=== PATIENT | female | born 1980 | race Caucasian/White ===

== ENCOUNTER 2018-03-16 19:27 | Emergency (ER) | payer MEDICAID ==
[~2018-03-16] VITALS: Ht 180.3 cm; Wt 90.0 kg
[2018-03-16 19:50] LABS: BASOPHILS # (AUTO) 0.1 X10'3 (0-0.2); BASOPHILS % (AUTO) 0.5 % (0-1); EOSINOPHILS # (AUTO) 0.5 X10'3 (0-0.9); EOSINOPHILS % (AUTO) 4.6 % (0-6); HEMATOCRIT 46.3 % (35.0-45.0); HEMOGLOBIN 15.7 g/dl (12.0-16.0); LYMPHOCYTES # (AUTO) 4.9 X10'3 (1.1-4.8); LYMPHOCYTES % (AUTO) 42.4 % (21-51); MEAN CORPUSCULAR HEMOGLOBIN 28.1 PG (27.0-31.0); MEAN CORPUSCULAR HGB CONC 33.9 % (33.0-36.5); MEAN CORPUSCULAR VOLUME 82.9 FL (78-98); MEAN PLATELET VOLUME 9.5 FL (7.4-10.4); MONOCYTES # (AUTO) 0.9 X10'3 (0-0.9); MONOCYTES % (AUTO) 8.2 % (2-12); NEUTROPHILS # (AUTO) 5.1 X10'3 (1.8-7.7); NEUTROPHILS % (AUTO) 44.3 % (42-75); PLATELET COUNT 222 X10'3 (140-440); RED BLOOD COUNT 5.59 X10'6 (4.20-5.60); RED CELL DISTRIBUTION WIDTH 12.6 % (11.5-14.5); WHITE BLOOD COUNT 11.5 X10'3 (4.5-11.0)
[2018-03-16 19:56] LABS: CLARITY,URINE CLEAR (Clear); COLOR,URINE YELLOW (Yellow); GLUCOSE, URINE NEGATIVE (Neg); KETONES,URINE NEGATIVE (Neg); LEUKOCYTE ESTERASE ,URINE NEGATIVE (Neg); NITRITES, URINE NEGATIVE (Neg); OCCULT BLOOD,URINE TRACE-INTACT (Neg); PROTEIN,URINE NEGATIVE (Neg); UROBILINOGEN,URINE 0.2 E.U/dL (0.2-1.0)
[2018-03-16 20:01] LABS: URINE HCG NEGATIVE (NEG)
[2018-03-16 20:02] LABS: UA COLLECTION TYPE CLN CATCH MIDSTREAM
[2018-03-16 20:03] LABS: BACTERIA,URINE FEW /HPF (Neg); RBC,URINE 0-2 /HPF (0-2); SQUAMOUS EPITHELIAL CELL,UR FEW /LPF (FEW); WBC,URINE NONE SEEN /HPF (0-4)
[2018-03-16 20:07] LABS: ALANINE AMINOTRANSFERASE 46 U/L (12-78); ALBUMIN 3.2 G/DL (3.4-5.0); ALBUMIN/GLOBULIN RATIO 0.8 (1.1-1.5); ALKALINE PHOSPHATASE 107 IU/L (46-116); ANION GAP 10 (8-16); ASPARTATE AMINO TRANSFERASE 26 U/L (10-37); BILIRUBIN,TOTAL 0.3 MG/DL (0.1-1.0); BLOOD UREA NITROGEN 10 MG/DL (7-18); CALCIUM 8.8 MG/DL (8.5-10.1); CHLORIDE 106 MMOL/L (99-107); CREATININE 0.91 MG/DL (0.40-0.90); GLUCOSE 151 MG/DL (70-104); LIPASE 159 U/L (73-393); POTASSIUM 4.3 MMOL/L (3.5-5.1); SODIUM 138 MMOL/L (135-145); TOTAL CARBON DIOXIDE 21.9 MMOL/L (24-32); TOTAL PROTEIN 7.3 G/DL (6.4-8.2); eGFR 69 ML/MIN
[2018-03-16 20:08] LABS: PROTHROMBIN TIME 9.7 SECONDS (9.0-12.0)
[2018-03-16] MEDS ORDERED: ketorolac trometh inj. 60 MG/2 ML VIAL IM ONE (20:30)
[2018-03-16] MEDS ORDERED: HYDROcodone/acetaminophen 5mg/325mg tablet PO ONE (20:30)
[2018-03-16] MEDS ORDERED: CYCL-1 PO (21:19)
[2018-03-16] MEDS ORDERED: DICL50TA8 PO (21:19)
[2018-03-16 21:39] VITALS: BP 132/72
== END 2018-03-16 21:40 | disposition home or self-care (01) ==
LOC: ER 19:28
DX: R10.31 Right lower quadrant pain (principal); F41.9 Anxiety disorder, unspecified; Z87.440 Personal history of urinary (tract) infections
CPT/HCPCS: 36415; 74176; 80053; 81001; 81025; 83690; 85025; 85610; 96372; 99284; J1885

== ENCOUNTER 2019-11-15 11:37 | Emergency (ER) | payer MEDICAID ==
[~2019-11-15] VITALS: Ht 180.3 cm; Wt 110.4 kg
[~2019-11-15 11:37] MED LIST: CYCL-1 PO; DICL50TA8 PO
[2019-11-15 11:46] VITALS: BP 130/90
--- NOTE | 2019-11-15 11:53 | NUR ---
awaiting for ed .
[2019-11-15] MEDS ORDERED: LIDOcaine Viscous 15ml cup MM STA (12:16)
[2019-11-15] MEDS ORDERED: LIDO20SO16 PO (12:25)
[2019-11-15] MEDS ORDERED: AMOX500C2 PO (12:25)
== END 2019-11-15 12:36 | disposition home or self-care (01) ==
LOC: ER 11:38
DX: K08.89 Other specified disorders of teeth and supporting structures (principal); R42 Dizziness and giddiness; R11.0 Nausea; F41.9 Anxiety disorder, unspecified; Z98.890 Other specified postprocedural states; Z79.2 Long term (current) use of antibiotics; Z79.899 Other long term (current) drug therapy
CPT/HCPCS: 99283

== ENCOUNTER 2020-02-23 13:46 | Emergency (ER) | payer MEDICAID ==
[~2020-02-23] VITALS: Ht 180.3 cm; Wt 100.0 kg
[~2020-02-23 13:46] MED LIST changes: +LIDO20SO16 PO
[2020-02-23] MEDS ORDERED: ketorolac trometh inj. 60 MG/2 ML VIAL IM ONE (15:25)
[2020-02-23] MEDS ORDERED: meclizine 12.5mg tablet PO ONE ×2 (15:25→16:30)
[2020-02-23] MEDS ORDERED: acetaminophen 325mg tablet PO ONE (15:25)
[2020-02-23] MEDS ORDERED: MECL-183 PO (17:32)
[2020-02-23 17:54] VITALS: BP 136/103
== END 2020-02-23 17:55 | disposition home or self-care (01) ==
LOC: ER 13:46
DX: R42 Dizziness and giddiness (principal); R51.9 Headache, unspecified; E05.00 Thyrotoxicosis with diffuse goiter without thyrotoxic crisis or storm; E07.9 Disorder of thyroid, unspecified; F12.10 Cannabis abuse, uncomplicated; F41.9 Anxiety disorder, unspecified; Z87.448 Personal history of other diseases of urinary system; Z79.899 Other long term (current) drug therapy
CPT/HCPCS: 93005; 96372; 99284; J1885; J8597

== ENCOUNTER 2020-03-17 17:23 | Emergency (ER) | payer MEDICAID, OTHER ==
[~2020-03-17] VITALS: Ht 180.3 cm; Wt 100.0 kg
[~2020-03-17 17:23] MED LIST changes: +MECL-226 PO
[2020-03-17 17:49] VITALS: BP 153/97
[2020-03-17] MEDS ORDERED: IBUP-1984 PO (18:22)
== END 2020-03-17 18:36 | disposition home or self-care (01) ==
LOC: ER 17:23
DX: S63.591A Other specified sprain of right wrist, initial encounter (principal); F17.200 Nicotine dependence, unspecified, uncomplicated; F15.90 Other stimulant use, unspecified, uncomplicated; F17.210 Nicotine dependence, cigarettes, uncomplicated; E05.00 Thyrotoxicosis with diffuse goiter without thyrotoxic crisis or storm; Z79.899 Other long term (current) drug therapy; X50.0XXA Overexertion from strenuous movement or load, initial encounter; Y93.89 Activity, other specified; Y92.89 Other specified places as the place of occurrence of the external cause; Y99.0 Civilian activity done for income or pay
CPT/HCPCS: 29260; 73110; 99283

== ENCOUNTER 2020-05-14 23:55 | Emergency (ER) | payer MEDICAID, OTHER ==
[~2020-05-14] VITALS: Ht 180.3 cm; Wt 86.4 kg
[2020-05-15] MEDS ORDERED: proCHLORperazine 10 MG/2 ml inj IV ONE (00:40)
[2020-05-15] MEDS ORDERED: normal saline 1000ML IV soln IVB ONE (00:40)
[2020-05-15 01:29] LABS: D-DIMER 1.68 MG/L FEU (0-0.50)
[2020-05-15 01:31] LABS: ALANINE AMINOTRANSFERASE 17 U/L (12-78); ALBUMIN 3.1 G/DL (3.4-5.0); ALBUMIN/GLOBULIN RATIO 0.8 (1.1-1.5); ALKALINE PHOSPHATASE 72 IU/L (46-116); ANION GAP 10 (8-16); ASPARTATE AMINO TRANSFERASE 13 U/L (10-37); BILIRUBIN,TOTAL 0.5 MG/DL (0.1-1.0); BLOOD UREA NITROGEN 7 MG/DL (7-18); BUN/CREATININE RATIO 9.7 (6.6-38.0); CALCIUM 8.3 MG/DL (8.5-10.1); CHLORIDE 103 MMOL/L (99-107); CREATININE 0.72 MG/DL (0.40-0.90); GLUCOSE 103 MG/DL (70-104); POTASSIUM 3.6 MMOL/L (3.5-5.1); SODIUM 134 MMOL/L (135-145); TOTAL CARBON DIOXIDE 21.1 MMOL/L (24-32); eGFR 89 ML/MIN
[2020-05-15 01:47] LABS: BASOPHILS # (AUTO) 0.2 X10'3 (0-0.2); BASOPHILS % (AUTO) 1.5 % (0-1); EOSINOPHILS # (AUTO) 0.5 X10'3 (0-0.9); HEMATOCRIT 42.6 % (35.0-45.0); HEMOGLOBIN 14.6 g/dl (12.0-16.0); LYMPHOCYTES # (AUTO) 0.6 X10'3 (1.1-4.8); LYMPHOCYTES % (AUTO) 5.3 % (21-51); MEAN CORPUSCULAR HEMOGLOBIN 30.4 PG (27.0-31.0); MEAN CORPUSCULAR HGB CONC 34.3 g/dL (33.0-36.5); MEAN CORPUSCULAR VOLUME 88.7 FL (78-98); MEAN PLATELET VOLUME 8.9 FL (7.4-10.4); MONOCYTES # (AUTO) 0.6 X10'3 (0-0.9); MONOCYTES % (AUTO) 4.8 % (2-12); NEUTROPHILS % (AUTO) 84.4 % (42-75); PLATELET COUNT 272 X10'3 (140-440); RED BLOOD COUNT 4.81 X10'6 (4.20-5.60); RED CELL DISTRIBUTION WIDTH 13.3 % (11.5-14.5); WHITE BLOOD COUNT 11.9 X10'3 (4.5-11.0)
[2020-05-15] MEDS ORDERED: diphenhydrAMINE 50 mg/ml inj IV ONE (02:00)
[2020-05-15] MEDS ORDERED: metoclopramide 5 mg/ml inj IV ONE (02:00)
[2020-05-15] MEDS ORDERED: magnesium 2GM in 50ml NS 50 ML IV ONE (02:00)
[2020-05-15] MEDS ORDERED: iohexol 350MG/ML 100ml bottle IV ONE (02:00)
[2020-05-15] MEDS ORDERED: aspirin 325mg tablet PO ONE (02:00)
[2020-05-15 02:26] LABS: BETA HCG,QUANTITATIVE < 1.0 mIU/ml
[2020-05-15 02:34] VITALS: BP 114/71
--- NOTE | 2020-05-15 02:41 | NUR ---
returned from ct of chest. continues with headache. just given reglan, benedryl, mg gtt infusing and 1 liter ns bolus infused. awating ct results. remains in airborn precautions.
[2020-05-15] MEDS ORDERED: PRED20TA PO (03:03)
[2020-05-15] MEDS ORDERED: dexamethasone 4mg/ml inj IV ONE (03:05)
[2020-05-15] MEDS ORDERED: dexamethasone 4mg/ml inj IV SCH (08:00)
== END 2020-05-15 03:30 | disposition home or self-care (01) ==
LOC: ER 23:57
DX: J06.9 Acute upper respiratory infection, unspecified (principal); R05 Cough; R06.02 Shortness of breath; R50.9 Fever, unspecified; Z20.822 Contact with and (suspected) exposure to COVID-19; F41.9 Anxiety disorder, unspecified; E05.90 Thyrotoxicosis, unspecified without thyrotoxic crisis or storm; F12.90 Cannabis use, unspecified, uncomplicated; Z87.440 Personal history of urinary (tract) infections; Z98.890 Other specified postprocedural states; Z79.899 Other long term (current) drug therapy
CPT/HCPCS: 36415; 71045; 71275; 80053; 83880; 84702; 85025; 85379; 85610; 87635; 93005; 96361; 96365; 96375; 99285; J0780; J1100; J1200; J2765; J3475; J7030; Q9967

== ENCOUNTER 2024-08-25 22:49 | Emergency (ER) | payer MEDICAID ==
[~2024-08-25] VITALS: Ht 182.9 cm; Wt 120.0 kg
[2024-08-25 23:00] LABS: BASOPHILS # (AUTO) 0.2 X10'3 (0-0.2); BASOPHILS % (AUTO) 1.1 % (0-1); EOSINOPHILS # (AUTO) 0.6 X10'3 (0-0.9); EOSINOPHILS % (AUTO) 3.4 % (0-6); HEMOGLOBIN 14.7 g/dl (12.0-16.0); LYMPHOCYTES # (AUTO) 6.4 X10'3 (1.1-4.8); LYMPHOCYTES % (AUTO) 35.7 % (21-51); MEAN CORPUSCULAR HEMOGLOBIN 28.8 PG (27.0-31.0); MEAN CORPUSCULAR HGB CONC 33.4 g/dL (33.0-36.5); MEAN CORPUSCULAR VOLUME 86.1 FL (78-98); MEAN PLATELET VOLUME 8.1 FL (7.4-10.4); MONOCYTES # (AUTO) 1.1 X10'3 (0-0.9); MONOCYTES % (AUTO) 6.2 % (2-12); NEUTROPHILS # (AUTO) 9.6 X10'3 (1.8-7.7); NEUTROPHILS % (AUTO) 53.6 % (42-75); PLATELET COUNT 367 X10'3 (140-440); RED BLOOD COUNT 5.11 X10'6 (4.20-5.60); RED CELL DISTRIBUTION WIDTH 13.5 % (11.5-14.5); WHITE BLOOD COUNT 17.9 X10'3 (4.5-11.0)
[2024-08-25 23:14] LABS: ALANINE AMINOTRANSFERASE 19 U/L (12-78); ALBUMIN 3.2 G/DL (3.4-5.0); ALBUMIN/GLOBULIN RATIO 0.8 (1.1-1.5); ALKALINE PHOSPHATASE 108 IU/L (46-116); ANION GAP 6 (8-16); ASPARTATE AMINO TRANSFERASE 12 U/L (10-37); BILIRUBIN,TOTAL 0.2 MG/DL (0.1-1.0); BLOOD UREA NITROGEN 11 MG/DL (7-18); BUN/CREATININE RATIO 12.6 (10.0-20.0); CALCIUM 8.4 MG/DL (8.5-10.1); CHLORIDE 107 MMOL/L (99-107); CREATININE 0.87 MG/DL (0.40-0.90); GLUCOSE 99 MG/DL (70-104); POTASSIUM 4.2 MMOL/L (3.5-5.1); SODIUM 141 MMOL/L (135-145); TOTAL CARBON DIOXIDE 27.9 MMOL/L (24-32); TOTAL PROTEIN 7.1 G/DL (6.4-8.2); eCRCL 94 ML/MIN; eGFR 70 ML/MIN
[2024-08-25 23:21] LABS: PRO BRAIN NATRIURETIC PEPTIDE 43 PG/ML (0-125)
--- NOTE | 2024-08-26 01:09 | Physician Documentation ---
History of Present Illness ~ Chief Complaint: Chest Pain Stated Complaint: CHEST PAIN Time Seen by MD: 01:06 Primary Medical Doctor: Danie Mode of Arrival: POV HPI Patient presents to the emergency room for evaluation of chest pain. She states that symptoms began a proximally 4 hours prior to arrival while she was laying down in bed. Pain is shooting in nature exacerbated by nothing relieved by nothing. No prior instances. Denies one-sided leg pain. Patient does smoke and has a history of hyperlipidemia but denies any history of diabetes or hypertension or first-degree relative with heart disease. Medication Reconciliation Allergies: Coded Allergies: No Known Allergies (Unverified , 01/08/15) Scheduled Diclofenac Sodium (Diclofenac Sodium), 1 TABLET PO BID Lidocaine Hcl (Xylocaine Viscous), 10 ML PO Q4H Scheduled PRN Cyclobenzaprine* (Cyclobenzaprine*), 1 TABLET PO Q8H PRN for muscle spasms Meclizine HCl (Meclizine HCl), 1 TAB PO Q8H PRN for dizz Past Medical History Past Medical History: *RENAL/*, UTI, Graves' Disease, Hyperthyroidism, Anxiety Past Surgical History: other Alcohol Use: Rarely Drug Use: marijuana Lives with: Mother, S/O Lives In: Home Occupation: employed Review of Systems ROS All review of systems negative except as per HPI Physical Exam Vital Signs: Temperature: 97.8, Source: Oral, Heart Rate: 73, Respiratory Rate: 19, BP: 139/98, Pulse Oximetry: 99, Weight: 120.000 Oxygen Flow Rate: 0 Physical Exam General: Patient is awake, alert, oriented x4 in no acute distress Head: Normocephalic and atraumatic. Eyes: Conjunctival normal. EOMI. PERRL. ENT: Mucous membranes moist. Neck: Supple, trachea is midline. Chest: Clear to auscultation bilaterally without rales, rhonchi, or wheezes. There is no accessory muscle use or retractions. Cardiac: RRR without murmurs, gallops, or rubs. Extremities: Normal strength. Normal range of motion. No deformities or edema. No calf tenderness to palpation Progress Results/Orders Results/Orders Orders - OK MADRID MD Chest,Single View (08/25/24 23:05) Monitor (08/25/24 22:51) Saline Lock (08/25/24 22:51) Oxygen (5/12/25 22:51) Electrocardiogram (08/25/24 22:51) Hs Troponin I W Calculations (08/26/24 01:51) Completed Orders - OK MADRID MD Chest,Single View (08/25/24 23:05) Cbc/Diff (08/25/24 22:51) PBNP (08/25/24 22:51) CMP (08/25/24 22:51) Hs Troponin I W Calculations (08/25/24 22:51) Hs Troponin I W Calculations (08/26/24 00:51) Vital Signs 08/25/24 08/25/24 08/25/24 08/25/24 22:59 23:29 23:31 23:31 Temp 97.8 97.8 Pulse 94 81 Resp 16 19 16 B/P (MAP) 168/105 173/114 (133) Pulse Ox 99 O2 Flow Rate 0 0 08/26/24 00:56 Temp 97.8 Pulse 73 Resp 19 B/P (MAP) 139/98 (112) O2 Flow Rate 0 Laboratory Tests Test 08/25/24 22:54 08/26/24 00:51 White Blood Count 17.9 H Red Blood Count 5.11 Hemoglobin 14.7 Hematocrit 44.0 Mean Corpuscular Volume 86.1 Mean Corpuscular Hemoglobin 28.8 Mean Corpuscular Hemoglobin Concent 33.4 Red Cell Distribution Width 13.5 Platelet Count 367 Mean Platelet Volume 8.1 Neutrophils (%) (Auto) 53.6 Lymphocytes (%) (Auto) 35.7 Monocytes (%) (Auto) 6.2 Eosinophils (%) (Auto) 3.4 Basophils (%) (Auto) 1.1 H Neutrophils # (Auto) 9.6 H Lymphocytes # (Auto) 6.4 H Monocytes # (Auto) 1.1 H Eosinophils # (Auto) 0.6 Basophils # (Auto) 0.2 CBC Comment Sodium Level 141 Potassium Level 4.2 Chloride Level 107 Carbon Dioxide Level 27.9 Anion Gap 6 L Blood Urea Nitrogen 11 Creatinine 0.87 Estimated GFR/1.73 m2 70 BUN/Creatinine Ratio 12.6 Glucose Level 99 Calcium Level 8.4 L Total Bilirubin 0.2 Aspartate Amino Transf (AST/SGOT) 12 Alanine Aminotransferase (ALT/SGPT) 19 Alkaline Phosphatase 108 Troponin I High Sensitivity 4 4 Pro-B-Type Natriuretic Peptide 43 Total Protein 7.1 Albumin 3.2 L Globulin 3.9 Albumin/Globulin Ratio 0.8 L Chemistry Comments Troponin I High Sens Percent Delta 0 Troponin I Hi Sens Absolute Change 0 EKG/XRAY/CT/US/VASC/MRI EKG : Additional Comment EKG interpreted by myself shows time of 06/05/2054, rate 91, sinus rhythm, normal axis, no ST changes Chest X-Ray : Additional Comments One view chest x-ray interpreted by myself shows no effusions, no infiltrates, normal cardiac silhouette, no pneumothorax Medical Decision Making Findings Patient presents to the emergency room with chest pain as per HPI. Differentials include but are not limited to ACS, pulmonary embolism, aortic pathology, musculoskeletal pain, reflux therefore emergent labs and imaging indicated. Chest x-ray is reassuring as are labs especially troponins negative x2. Patient's chest pain is atypical. She does have two risk factors with a heart score of three. No calf tenderness no tachycardia and no hypoxia and I have a low suspicion of pulmonary embolism especially in the light of waxing and waning symptoms. Offered to do a D-dimer however after discussion of possibly getting a false-positive patient would prefer conservative management with instructions to return if symptoms worsen. Patient does have a history of reflux in his had to use her home remedy of baking soda just this past day. We will give a dose of Pepcid and Maalox in the time being. The need to follow up with her doctor discussed. Departure Disposition: HOME / SELF CARE / HOMELESS Impression: Primary Impression: Chest pain Condition: Fair Discharge Instructions: Nonspecific Chest Pain, Adult Referrals: NO PRIMARY CARE PROVIDER (PCP) Education Educated: Patient Educated regarding: need for follow up Signature Scribe Signature: No scribe Attestation: The note accurately reflects work and decisions made by me.Ok Madrid MD 08/26/24 01:36 OK MADRID MD August 26, 2024 01:08
[2024-08-26] MEDS: famotidine 20mg tablet PO ONE (01:44)
[2024-08-26] MEDS: mag hydrox/Alum hydrox/simeth 30ml oral suspension PO ONE (01:44)
[2024-08-26 01:48] VITALS: BP 158/68; PULSE 75; RESP 16; TEMP 97.8; O2SAT 100
--- NOTE | 2024-08-26 01:52 | RADIOLOGY REPORT ---
Clinical History CP Comparison CHEST on 05/15/2020, 1 images. Technique: frontal chest x-ray Without Contrast CAMELIA GRIER, [id number] Findings: Heart - normal lungs - no consolidation. bones - no acute fracture. Other- Impression: 1. No acute cardiopulmonary disease This report was electronically signed by Marah Meza MD on 08/26/2024 1:50:15 AM.
--- NOTE | 2024-08-26 06:37 | ELECTROCARDIOGRAPH REPORT ---
[facility] Test Date: 2024-08-25 Test Time: 22:55:57 Pat Name: CAMELIA GRIER Department: EMERGENCY ROOM Room: Gender: F [employer] Associate: : [id number] Requested By: BROOKS DOWD Order Number: [id number] Reading MD: Measurements Intervals [place] Rate: 91 P: 28 NE: 132 QRS: 4 QRSD: 90 T: 57 QT: 357 QTc: 440 Interpretive Statements Sinus rhythm Please click the below link to view image of tracing.
== END 2024-08-26 01:51 | disposition home or self-care (01) ==
LOC: ER 22:50
DX: R07.9 Chest pain, unspecified (principal); E78.5 Hyperlipidemia, unspecified; F41.9 Anxiety disorder, unspecified
CPT/HCPCS: 36415; 71045; 80053; 83880; 84484; 85025; 93005; 99285